=== PATIENT | female | born 1980 | race Caucasian/White ===

== ENCOUNTER → 2017-02-03 | Outpatient (CLI) | payer OTHER ==
[~2017-02-03] MED LIST: CEPH-367; FLUC100T; IBUP200C5 PO; MICO133A
== END | disposition home or self-care (01) ==
LOC: CFH 12:48
PROVIDERS: ATTEND Family Medicine
DX: M51.26 Other intervertebral disc displacement, lumbar region (principal)
CPT/HCPCS: 72148

== ENCOUNTER → 2017-04-30 | Outpatient (CLI) | payer OTHER ==
[~2017-04-30] MED LIST changes: +GADOBUTROL 7.5 MMOL/7.5 ML PFS ONE
== END | disposition home or self-care (01) ==
LOC: RAD 10:25
PROVIDERS: ATTEND Family Medicine
DX: M50.223 Other cervical disc displacement at C6-C7 level (principal); R51 Headache; J34.1 Cyst and mucocele of nose and nasal sinus
CPT/HCPCS: 70553; 72156; A9585

== ENCOUNTER → 2018-01-05 | Outpatient (CLI) | payer OTHER ==
[~2018-01-05] MED LIST changes: -GADOBUTROL 7.5 MMOL/7.5 ML PFS ONE; +IBUP-1623 PO; -IBUP200C5 PO
== END | disposition home or self-care (01) ==
LOC: CFH 07:14
PROVIDERS: ATTEND Nurse Practitioner Family
DX: S13.140A Subluxation of C3/C4 cervical vertebrae, initial encounter (principal); M50.223 Other cervical disc displacement at C6-C7 level; X58.XXXA Exposure to other specified factors, initial encounter; Y93.89 Activity, other specified; Y92.89 Other specified places as the place of occurrence of the external cause; Y99.8 Other external cause status
CPT/HCPCS: 72040; 72141